=== PATIENT | male | born 1950 | race Hispanic/Latino ===

== ENCOUNTER 2020-03-02 19:26 | Emergency (ER) | payer MEDICARE, OTHER ==
[~2020-03-02 19:26] MED LIST: Iopamidol 370 76% 100 ML VIAL ONE; Sodium Chloride 0.9% 1,000 ML BAG ONE
[2020-03-02] MEDS ORDERED: Ketorolac Tromethamine 30 MG/ML VIAL ONE (20:27)
[2020-03-02] MEDS ORDERED: Ondansetron PF 4 MG/2 ML Vial ONE (20:27)
[2020-03-02 20:48] LABS: ALT (SGPT) 45 U/L (8-55); AST (SGOT) 23 U/L (5-34); Albumin 4.6 g/dL (3.4-4.8); Alkaline Phosphatase 149 U/L (40-110); Anion Gap 20 mmol/L (10-20); BUN (Urea Nitrogen) 22 mg/dL (8.4-25.7); Bilirubin, Total 0.5 mg/dL (0.2-1.2); CK (CPK) 62 U/L (30-200); Calc. Creatinine Clearance 0 mL/min (70-130); Calcium 9.6 mg/dL (7.8-10.44); Carbon Dioxide 20 mmol/L (23-31); Chloride 89 mmol/L (98-107); Estimated GFR-MDRD 55; Glucose 275 mg/dL (80-115); Lipase 24 U/L (8-78); Potassium 5.1 mmol/L (3.5-5.1); Protein, Total 7.6 g/dL (5.8-8.1); Sodium 124 mmol/L (136-145)
[2020-03-02 21:01] LABS: Band 3 % (5-11); Eosinophils 1 % (0-10); Hemoglobin 13.2 g/dL (14.0-18.0); Lymphocytes 12 % (21-51); MDiff Complete? YES; Mean Corpuscular HGB CONC 32.5 g/dL (32.0-36.0); Mean Corpuscular Hemoglobin 26.5 pg (27.0-31.0); Mean Corpuscular Volume 81.5 fL (78.0-98.0); Monocytes 7 % (0-10); Neutrophil 77 % (42-75); Platelet Count 285 thou/uL (130-400); Red Blood Cell (RBC) Count 4.98 mill/uL (4.70-6.10)
[2020-03-02] MEDS ORDERED: Lorazepam 2 MG/ML VIAL ONE (21:15)
[2020-03-02 21:19] LABS: CKMB 1.6 ng/mL (0-6.6)
[2020-03-02 21:44] LABS: Bilirubin Negative (Negative); Blood, Urine Trace (Negative); Clarity Clear (Clear); Glucose, Urine (Dipstick) >=1000 mg/dL (Negative); Ketone, Urine 15 mg/dL (Negative); Leukocyte Negative (Negative); Nitrite Negative (Negative); Protein, Urine (Dipstick) Trace mg/dL (Neg-Trace); Urobilinogen 0.2 mg/dL (Less than 2)
[2020-03-02] MEDS ORDERED: Cefepime 2 GM VIAL ONE (21:47)
[2020-03-02] MEDS ORDERED: Sodium Chloride 0.9% 100 ML ONE (21:47)
[2020-03-02 21:50] LABS: RBC/HPF 0-3 HPF (0-3); Squamous Epithelial 0-3 HPF (0-3); WBC/HPF 0-3 HPF (0-3)
[2020-03-02 21:51] LABS: Bacteria/HPF None Seen HPF (None Seen)
[2020-03-02] MEDS ORDERED: Vancomycin 1.5 GRAM/300 ML BAG ONE (22:00)
[2020-03-02] MEDS ORDERED: Aspirin 300 MG Suppository ONE (22:00)
--- NOTE | 2020-03-02 22:09 | CT ---
CT abdomen and pelvis with IV contrast HISTORY: Abdominal pain. FINDINGS: The superiormost image shows a nonspecific subpleural nodular process in the left lower lob e. Extensive postoperative changes of the bowel and of the upper abdomen, consistent with prior Whipple procedure. No evidence of bowel obstruction. Prominent calcification throughout the arterial structures. Urinary bladder is unremarkable. No enlarged lymph nodes or free fluid. Prominent degenerative changes throughout the lumbar spine. IMPRESSION : Extensive postoperative changes. No evidence of bowel obstruction or other acute abnormality. Atherosclerosis.
[2020-03-02] MEDS ORDERED: Metoclopramide HCl 10 MG/2 ML VIAL ONE (23:08)
[2020-03-02] MEDS ORDERED: diphenhydrAMINE 50 MG/ML VIAL ONE (23:08)
[2020-03-02] MEDS ORDERED: hydrALAZINE 20 MG/ML VIAL ONE (23:20)
[2020-03-02 23:45] LABS: Lactic Acid 1.5 mmol/L (0.5-2.2)
== END 2020-03-03 00:32 | disposition short-term general hospital (02) ==
LOC: MADERS 19:26
DX: A41.9 Sepsis, unspecified organism (principal); E87.1 Hypo-osmolality and hyponatremia; E86.0 Dehydration; I25.10 Atherosclerotic heart disease of native coronary artery without angina pectoris; E11.9 Type 2 diabetes mellitus without complications; F41.9 Anxiety disorder, unspecified; F32.9 Major depressive disorder, single episode, unspecified; Z79.899 Other long term (current) drug therapy; Z79.84 Long term (current) use of oral hypoglycemic drugs
CPT/HCPCS: 36415; 74177; 80053; 81003; 81015; 82550; 82553; 83605; 83690; 84484; 85025; 87040; 87086; 93005; 96361; 96365; 96367; 96375; J0360; J0692; J1200; J1885; J2060; J2405; J2765; J3370; J3490; J7050; Q9967

== ENCOUNTER 2020-04-17 19:50 | Emergency (ER) | payer MEDICARE, OTHER ==
--- NOTE | 2020-04-17 20:31 | CT ---
Exam: Head CT without contrast HISTORY: Fall. Posterior scalp hematoma. COMPARISON: none FINDINGS: Hemorrhage: No intraparenchymal hemorrhage or extra-axial hematoma. Brain parenchyma: Cortical reese-white matter differentiation is preserved. No mass effect or midline shift. Basilar cisterns are patent.Scattered white matter hypodensities due to chronic small vessel ischemic change Ventricular system: Ventricles and sulci are patent and symmetric. Calvarium: Intact. Sinuses and mastoid air cells: Adequate aeration. Scalp: Posterior left scalp hematoma. IMPRESSION: 1. No intracranial post traumatic sequelae.
--- NOTE | 2020-04-17 20:33 | CT ---
Exam: CT cervical spine without contrast HISTORY: Trauma. Pain. COMPARISON: None FINDINGS: No craniocervical dissociation. Appropriate alignment of the lateral masses of C1 and C2. Intact odon toid process Appropriate alignment of the facets. Straightening of cervical lordosis may be due to patient position, muscle spasm or cervical collar. Soft tissue neck structures: No mass, lymphadenopathy or hematoma. No prevertebral soft tissue swelli ng. Upper mediastinum and lung apices: Unremarkable Central spinal canal: Loss of disc space height and extensive osteophyte formation from C3 through C7 . There is moderate central canal stenosis at C3-C4, C4-C5, C5-C6 and C6-C7 due to degenerative change. Associated significant neural foraminal narrowing. Technique limits evaluation. Vertebral bodies: Cervical spine vertebral body height is maintained. No fracture. IMPRESSION: 1. No cervical spine fracture 2. Straightening of cervical lordosis as described above. If there is concern for ligamentous injury, consider MRI.
[2020-04-17 20:43] LABS: Prothrombin Time 13.1 sec (12.0-14.7)
[2020-04-17 20:52] LABS: ALT (SGPT) 31 U/L (8-55); AST (SGOT) 22 U/L (5-34); Albumin 4.3 g/dL (3.4-4.8); Alkaline Phosphatase 130 U/L (40-110); Anion Gap 17 mmol/L (10-20); BUN (Urea Nitrogen) 31 mg/dL (8.4-25.7); Bilirubin, Total 0.6 mg/dL (0.2-1.2); Calc. Creatinine Clearance 0 mL/min (70-130); Carbon Dioxide 18 mmol/L (23-31); Chloride 92 mmol/L (98-107); Eosinophils 3 % (0-10); Estimated GFR-MDRD 37; Globulin 2.6 g/dL (2.4-3.5); Glucose 160 mg/dL (80-115); Hemoglobin 9.6 g/dL (14.0-18.0); Hypochromia SLIGHT = 6-15 cells (100X) (0-5/hpf); Lymphocytes 10 % (21-51); MDiff Complete? YES; Mean Corpuscular HGB CONC 32.8 g/dL (32.0-36.0); Mean Corpuscular Hemoglobin 26.9 pg (27.0-31.0); Mean Corpuscular Volume 82.2 fL (78.0-98.0); Mean Platelet Volume 6.8 fL (7.4-10.4); Monocytes 5 % (0-10); Neutrophil 76 % (42-75); Platelet Count 326 thou/uL (130-400); Platelet Morphology Comment Appears Adequate; Potassium 6.4 mmol/L (3.5-5.1); Protein, Total 6.9 g/dL (5.8-8.1); RBC Distribution Width 12.2 % (11.5-14.5); Reactive Lymphocytes 6 % (0-10); Red Blood Cell (RBC) Count 3.58 mill/uL (4.70-6.10); Sodium 121 mmol/L (136-145); White Blood Cell (WBC) Count 12.6 thou/uL (4.8-10.8)
[2020-04-17] MEDS ORDERED: Ketorolac Tromethamine 30 MG/ML VIAL ONE (21:02)
[2020-04-17] MEDS ORDERED: Acetaminophen 500 MG TAB ONE (21:02)
[2020-04-17 21:26] LABS: Anion Gap 18 mmol/L (10-20); BUN (Urea Nitrogen) 31 mg/dL (8.4-25.7); Calc. Creatinine Clearance 0 mL/min (70-130); Calcium 8.9 mg/dL (7.8-10.44); Carbon Dioxide 16 mmol/L (23-31); Chloride 91 mmol/L (98-107); Estimated GFR-MDRD 39; Glucose 149 mg/dL (80-115)
[2020-04-17 21:29] LABS: Sodium 118 mmol/L (136-145)
[2020-04-17] MEDS ORDERED: Insulin Regular 300 UNITS/3 ML VIAL ONE (21:44)
[2020-04-17] MEDS ORDERED: Albuterol 200 PUFF (6.7GM INHALER) ONE (21:44)
[2020-04-17] MEDS ORDERED: Dextrose 50% Abboject 50 ML SYRINGE ONE (21:44)
[2020-04-17] MEDS ORDERED: Calcium Gluc 4.6 MEQ/10 ML (100 MG/ML) ONE (21:44)
[2020-04-17] MEDS ORDERED: Sodium Chloride 0.9% 100 ML ONE (21:55)
[2020-04-17] MEDS ORDERED: Albuterol Sulfate 2.5 mg/0.5 ml Neb ONE ×3 (22:08→22:15)
== END 2020-04-17 22:33 | disposition short-term general hospital (02) ==
LOC: MADERS 19:50
DX: S00.03XA Contusion of scalp, initial encounter (principal); D64.9 Anemia, unspecified; E87.1 Hypo-osmolality and hyponatremia; R55 Syncope and collapse; I25.10 Atherosclerotic heart disease of native coronary artery without angina pectoris; E11.9 Type 2 diabetes mellitus without complications; I10 Essential (primary) hypertension; E78.5 Hyperlipidemia, unspecified; F41.9 Anxiety disorder, unspecified; F32.9 Major depressive disorder, single episode, unspecified; Z79.84 Long term (current) use of oral hypoglycemic drugs; Z79.899 Other long term (current) drug therapy; W19.XXXA Unspecified fall, initial encounter
CPT/HCPCS: 36415; 36416; 70450; 72125; 80053; 84484; 85025; 85610; 93005; 96374; 96375; J1815; J1885; J3490; J7611

== ENCOUNTER 2020-05-05 17:41 | Emergency (ER) | payer MEDICARE, OTHER ==
[2020-05-05] MEDS ORDERED: Metoclopramide HCl 10 MG/2 ML VIAL ONE (18:00)
[2020-05-05] MEDS ORDERED: Sodium Chloride 0.9% 1,000 ML ONE (18:00)
[2020-05-05 18:17] LABS: #Basophils 0.1 thou/uL (0.0-0.2); #Eosinphils 0.1 thou/uL (0.0-0.7); #Lymphocytes 2.5 thou/uL (1.20-3.40); #Monocytes 0.8 thou/uL (0.11-0.59); #Neutrophils 11.7 thou/uL (1.40-6.50); %Basophils 0.4 % (0.0-1.0); %Eosinophils 0.4 % (0.0-10.0); %Lymphocytes 16.5 % (21.0-51.0); %Monocytes 5.3 % (0.0-10.0); %Neutrophils 77.5 % (42.0-75.0); Hemoglobin 10.8 g/dL (14.0-18.0); Mean Corpuscular HGB CONC 34.3 g/dL (32.0-36.0); Mean Corpuscular Hemoglobin 27.6 pg (27.0-31.0); Mean Corpuscular Volume 80.6 fL (78.0-98.0); Mean Platelet Volume 6.7 fL (7.4-10.4); Platelet Count 359 thou/uL (130-400); RBC Distribution Width 12.7 % (11.5-14.5); Red Blood Cell (RBC) Count 3.92 mill/uL (4.70-6.10); White Blood Cell (WBC) Count 15.2 thou/uL (4.8-10.8)
[2020-05-05 18:36] LABS: ALT (SGPT) 32 U/L (8-55); AST (SGOT) 22 U/L (5-34); Albumin 4.5 g/dL (3.4-4.8); Alkaline Phosphatase 128 U/L (40-110); Anion Gap 19 mmol/L (10-20); BUN (Urea Nitrogen) 23 mg/dL (8.4-25.7); Bilirubin, Total 1.3 mg/dL (0.2-1.2); Calc. Creatinine Clearance 0 mL/min (70-130); Carbon Dioxide 18 mmol/L (23-31); Chloride 85 mmol/L (98-107); Estimated GFR-MDRD 65; Globulin 2.6 g/dL (2.4-3.5); Glucose 156 mg/dL (80-115); Lipase 88 U/L (8-78); Magnesium 1.5 mg/dL (1.6-2.6); Potassium 4.2 mmol/L (3.5-5.1); Protein, Total 7.1 g/dL (5.8-8.1)
[2020-05-05 18:48] LABS: Sodium 118 mmol/L (136-145)
== END 2020-05-05 20:41 | disposition short-term general hospital (02) ==
LOC: MADERS 17:41
DX: E87.1 Hypo-osmolality and hyponatremia (principal); I25.10 Atherosclerotic heart disease of native coronary artery without angina pectoris; E11.9 Type 2 diabetes mellitus without complications; E78.5 Hyperlipidemia, unspecified; I10 Essential (primary) hypertension; F41.9 Anxiety disorder, unspecified; F32.9 Major depressive disorder, single episode, unspecified; Z79.84 Long term (current) use of oral hypoglycemic drugs; Z79.899 Other long term (current) drug therapy
CPT/HCPCS: 80053; 83690; 83735; 85025; 96361; 96374; J2765; J7050

== ENCOUNTER 2020-05-14 11:31 | Outpatient (CLI) | payer MEDICARE, OTHER ==
--- NOTE | 2020-05-14 12:00 | RAD ---
Exam: 2 views thoracic spine HISTORY: Spondylolysis. FINDINGS: 12 thoracic type vertebra. Thoracic spine vertebral body heights are maintained. No fractur e. There is osteophyte formation in the mid and distal thoracic spine IMPRESSION: Multilevel degenerative changes.
== END 2020-05-14 11:32 | disposition home or self-care (01) ==
LOC: MADRAD 11:31
DX: M54.16 Radiculopathy, lumbar region (principal); M47.814 Spondylosis without myelopathy or radiculopathy, thoracic region
CPT/HCPCS: 72070

== ENCOUNTER 2021-07-08 16:41 | Emergency (ER) | payer MEDICARE, OTHER ==
[~2021-07-08 16:41] MED LIST changes: -Sodium Chloride 0.9% 1,000 ML BAG ONE
[2021-07-08 17:19] LABS: #Basophils 0.1 thou/uL (0.0-0.2); #Eosinphils 0.1 thou/uL (0.0-0.7); #Lymphocytes 1.6 thou/uL (1.20-3.40); #Monocytes 0.4 thou/uL (0.11-0.59); #Neutrophils 9.3 thou/uL (1.40-6.50); %Basophils 0.5 % (0.0-1.0); %Eosinophils 0.6 % (0.0-10.0); %Lymphocytes 14.3 % (21.0-51.0); %Monocytes 3.4 % (0.0-10.0); %Neutrophils 81.2 % (42.0-75.0); Mean Corpuscular HGB CONC 31.7 g/dL (32.0-36.0); Mean Corpuscular Hemoglobin 26.1 pg (27.0-31.0); Mean Corpuscular Volume 82.5 fL (78.0-98.0); Platelet Count 246 thou/uL (130-400); RBC Distribution Width 14.8 % (11.5-14.5); Red Blood Cell (RBC) Count 5.72 mill/uL (4.70-6.10); White Blood Cell (WBC) Count 11.4 thou/uL (4.8-10.8)
[2021-07-08] MEDS ORDERED: Morphine 10 MG/ML VIAL ONE (17:23)
[2021-07-08] MEDS ORDERED: Ondansetron PF 4 MG/2 ML Vial ONE (17:24)
[2021-07-08 17:34] LABS: ALT (SGPT) 49 U/L (8-55); AST (SGOT) 37 U/L (5-34); Albumin 4.8 g/dL (3.4-4.8); Alkaline Phosphatase 150 U/L (40-110); Anion Gap 18 mmol/L (10-20); BUN (Urea Nitrogen) 27 mg/dL (8.4-25.7); Calc. Creatinine Clearance 0 mL/min (70-130); Calcium 9.4 mg/dL (7.8-10.44); Carbon Dioxide 17 mmol/L (23-31); Chloride 105 mmol/L (98-107); Glucose 178 mg/dL (80-115); Lipase 23 U/L (8-78); Potassium 3.4 mmol/L (3.5-5.1); Protein, Total 7.8 g/dL (5.8-8.1); Sodium 137 mmol/L (136-145)
[2021-07-08 18:37] LABS: Bilirubin Negative (Negative); Blood, Urine Small (Negative); Clarity Clear (Clear); Glucose, Urine (Dipstick) 250 mg/dL (Negative); Ketone, Urine 15 mg/dL (Negative); Leukocyte Negative (Negative); Nitrite Negative (Negative); Protein, Urine (Dipstick) > or equal to 300 mg/dL (Neg-Trace); Urobilinogen 0.2 mg/dL (Less than 2)
[2021-07-08 18:40] LABS: Bacteria/HPF 1+ HPF (None Seen); Squamous Epithelial 0-3 HPF (0-3)
[2021-07-08] MEDS ORDERED: Lisinopril 10 MG TAB ONE (18:53)
[2021-07-08] MEDS ORDERED: Sodium Chloride 0.9% 500 ML ONE (22:09)
[2021-07-08] MEDS ORDERED: Dicyclomine 10 MG CAP ONE (22:09)
[2021-07-08 22:25] LABS: Magnesium 2.1 mg/dL (1.6-2.6)
[2021-07-10 13:59] LABS: SARS-CoV-2 PCR by NAA Indeterminate (NotDetected)
== END 2021-07-08 23:58 | disposition home or self-care (01) ==
LOC: MADERS 16:41
DX: R11.2 Nausea with vomiting, unspecified (principal); R10.9 Unspecified abdominal pain; Z20.822 Contact with and (suspected) exposure to COVID-19; I10 Essential (primary) hypertension; E11.9 Type 2 diabetes mellitus without complications; I25.10 Atherosclerotic heart disease of native coronary artery without angina pectoris; E78.5 Hyperlipidemia, unspecified; Z79.4 Long term (current) use of insulin
CPT/HCPCS: 71045; 74177; 80053; 81003; 81015; 83690; 83735; 83880; 84484; 85025; 93005; 96372; 96374; 96375; J0500; J2270; J2405; J7030; Q9967; U0003; U0005

== ENCOUNTER 2021-07-12 08:04 | Emergency (ER) | payer MEDICARE, OTHER ==
[2021-07-12] MEDS ORDERED: Ondansetron PF 4 MG/2 ML Vial ONE ×2 (08:36→09:48)
[2021-07-12] MEDS ORDERED: Sodium Chloride 0.9% 1,000 ML ONE ×2 (08:36→09:21)
[2021-07-12] MEDS ORDERED: Dicyclomine 10 MG CAP ONE (08:36)
[2021-07-12 08:40] LABS: #Basophils 0.1 thou/uL (0.0-0.2); #Eosinphils 0.1 thou/uL (0.0-0.7); #Lymphocytes 1.9 thou/uL (1.20-3.40); #Monocytes 0.3 thou/uL (0.11-0.59); %Basophils 0.8 % (0.0-1.0); %Eosinophils 0.5 % (0.0-10.0); %Lymphocytes 16.7 % (21.0-51.0); %Monocytes 2.4 % (0.0-10.0); %Neutrophils 79.6 % (42.0-75.0); Hemoglobin 14.9 g/dL (14.0-18.0); Mean Corpuscular HGB CONC 30.7 g/dL (32.0-36.0); Mean Corpuscular Hemoglobin 25.9 pg (27.0-31.0); Mean Corpuscular Volume 84.4 fL (78.0-98.0); Mean Platelet Volume 7.4 fL (7.4-10.4); Platelet Count 227 thou/uL (130-400); Red Blood Cell (RBC) Count 5.76 mill/uL (4.70-6.10); White Blood Cell (WBC) Count 11.3 thou/uL (4.8-10.8)
[2021-07-12 08:55] LABS: ALT (SGPT) 40 U/L (8-55); AST (SGOT) 24 U/L (5-34); Albumin 4.7 g/dL (3.4-4.8); Alkaline Phosphatase 170 U/L (40-110); Anion Gap 17 mmol/L (10-20); BUN (Urea Nitrogen) 36 mg/dL (8.4-25.7); Bilirubin, Total 0.5 mg/dL (0.2-1.2); Calc. Creatinine Clearance 0 mL/min (70-130); Calcium 9.5 mg/dL (7.8-10.44); Carbon Dioxide 15 mmol/L (23-31); Chloride 103 mmol/L (98-107); Glucose 256 mg/dL (80-115); Lipase 24 U/L (8-78); Potassium 5.4 mmol/L (3.5-5.1); Protein, Total 7.7 g/dL (5.8-8.1); Sodium 130 mmol/L (136-145)
[2021-07-12] MEDS ORDERED: Lisinopril 10 MG TAB ONE (08:57)
[2021-07-12 09:02] LABS: Bilirubin Negative (Negative); Blood, Urine Trace (Negative); Clarity Clear (Clear); Glucose, Urine (Dipstick) 250 mg/dL (Negative); Ketone, Urine Negative (Negative); Leukocyte Negative (Negative); Nitrite Negative (Negative); Protein, Urine (Dipstick) 100 mg/dL (Neg-Trace); Urobilinogen 0.2 mg/dL (Less than 2); pH, Urine 5.5 (5.0-9.0)
[2021-07-12 09:05] LABS: Bacteria/HPF 2+ HPF (None Seen); RBC/HPF None Seen HPF (0-3); Squamous Epithelial 0-3 HPF (0-3)
[2021-07-12] MEDS ORDERED: Insulin Regular 300 UNITS/3 ML VIAL ONE (09:21)
[2021-07-12] MEDS ORDERED: Dextrose 50% Abboject 50 ML SYRINGE ONE (09:21)
[2021-07-12] MEDS ORDERED: Labetalol HCl 100 MG/20 ML VIAL ONE (10:30)
[2021-07-12] MEDS ORDERED: Fentanyl 100 MCG/2 ML VIAL ONE (10:44)
[2021-07-12 10:58] LABS: Anion Gap 14 mmol/L (10-20); BUN (Urea Nitrogen) 32 mg/dL (8.4-25.7); Calc. Creatinine Clearance 0 mL/min (70-130); Calcium 8.7 mg/dL (7.8-10.44); Carbon Dioxide 16 mmol/L (23-31); Chloride 107 mmol/L (98-107); Glucose 194 mg/dL (80-115); Potassium 5.6 mmol/L (3.5-5.1); Sodium 131 mmol/L (136-145)
[2021-07-12] MEDS ORDERED: Sodium Bicarb 50 MEQ/50 ML Abboject 8.4% SYRINGE ONE (11:52)
[2021-07-12 12:25] LABS: SARS-CoV-2 NAA Rapid Test Not Detected (NotDetected)
[2021-07-12] MEDS ORDERED: Calcium Gluc 4.6 MEQ/10 ML (100 MG/ML) ONE (12:30)
[2021-07-12] MEDS ORDERED: Sodium Chloride 0.9% 100 ML ONE (12:36)
== END 2021-07-12 13:11 | disposition short-term general hospital (02) ==
LOC: MADERS 08:04
DX: E87.5 Hyperkalemia (principal); Z20.822 Contact with and (suspected) exposure to COVID-19; I10 Essential (primary) hypertension; I25.10 Atherosclerotic heart disease of native coronary artery without angina pectoris; E11.9 Type 2 diabetes mellitus without complications; E78.5 Hyperlipidemia, unspecified; Z79.899 Other long term (current) drug therapy; Z79.84 Long term (current) use of oral hypoglycemic drugs
CPT/HCPCS: 80048; 80053; 83605; 83690; 84484; 85025; 93005; 94760; J0610; U0002; 36415; 81003; 81015; 96365; 96375; 96376; J1815; J2405; J3010; J3490; J7050